=== PATIENT | female | born 1935 | race Caucasian/White ===

== ENCOUNTER 2018-01-01 10:13 | Emergency (ER) | payer MEDICARE ==
[~2018-01-01] VITALS: Ht 160 cm; Wt 61.2 kg
[2018-01-01 10:13] VITALS: BP_SYST 110
[~2018-01-01 10:13] MED LIST: CARV3.1246 PO; FLUO10CA65 PO; FURO20TA4 PO; HYDR-4100 PO; ISOS30TA6 PO; LIP20 PO; MOME13HF2 INH; OMEP20CA10 PO; PLA200 PO; POTA-118 PO; PRED5TAB PO; SPIRIVA INH; WARF2.5T2 PO
[2018-01-01] MEDS ORDERED: FLUT1DIS5 INH (10:43)
[2018-01-01] MEDS ORDERED: MECL12.584 PO (10:43)
[2018-01-01] MEDS ORDERED: ONDA4TAB22 PO (10:43)
[2018-01-01] MEDS ORDERED: DIPH-179 PO (10:43)
[2018-01-01] MEDS ORDERED: MEGE400O PO (10:43)
[2018-01-01] MEDS ORDERED: PRED20TA PO (10:43)
[2018-01-01] MEDS ORDERED: ERGO500043 PO (10:43)
[2018-01-01] MEDS ORDERED: DILT30TA36 PO (10:51)
[2018-01-01] MEDS ORDERED: DABI150C PO (10:51)
[2018-01-01 11:11] LABS: BASOPHILS # (AUTO) 0.2 K/uL (0.0-0.2); EOSINOPHILS % (AUTO) 0.1 % (0.0-4.0); LYMPHOCYTES # (AUTO) 1.2 K/uL (1.0-5.5)
[2018-01-01 11:19] LABS: HEMATOCRIT 33.9 % (36-48); HEMOGLOBIN 11.7 g/dL (12.0-16.0); MEAN CORPUSCULAR HEMOGLOBIN 33 pg (27-31); MEAN CORPUSCULAR HGB CONC 35 % (32-36); MEAN CORPUSCULAR VOLUME 96 fL (79.0-98.0); MONOCYTES # (AUTO) 1.4 K/uL (0.0-1.0); MONOCYTES % (AUTO) 8.3 % (1.7-9.3); NEUTROPHILS # (AUTO) 14.1 K/uL (1.8-7.7); NEUTROPHILS % (AUTO) 83.6 % (40.0-70.0); RED BLOOD CELL COUNT(AUTO) 3.52 MIL/uL (4.2-6.2); RED CELL DISTRIBUTION WIDTH 20.7 % (9.0-15.0); WHITE BLOOD COUNT (AUTO) 16.9 K/uL (4.8-10.8)
[2018-01-01 11:30] LABS: INR 1.3 (0.8-1.2); PROTHROMBIN TIME 12.9 SECS (9.5-12.5)
[2018-01-01 11:31] LABS: ANION GAP 11 (5-15); CALCIUM 8.1 mg/dL (8.4-11.0); CHLORIDE 103 mmol/L (98-107); CREATININE 0.85 mg/dL (0.55-1.30); GLUCOSE 91 mg/dL (70-99); POTASSIUM 3.1 mmol/L (3.5-5.1); SODIUM SERUM 139 mmol/L (136-145); UREA NITROGEN, BLOOD 14 mg/dL (8-21)
[2018-01-01 11:35] LABS: ALANINE AMINOTRANSFERASE 14 U/L (12-78); ALBUMIN 1.9 g/dL (3.4-4.8); ASPARTATE AMINOTRANSFERASE 14 U/L (10-37); TOTAL BILIRUBIN 0.5 mg/dL (0.0-1.0)
[2018-01-01 11:55] LABS: PLATELET COUNT (AUTO) 730 K/uL (130-430)
[2018-01-01 13:14] LABS: BILIRUBIN,URINE NEGATIVE (NEGATIVE); BLOOD, URINE 2+ (NEGATIVE); CLARITY/URINE CLOUDY (CLEAR); COLOR,URINE YELLOW (YELLOW); GLUCOSE,URINE NEGATIVE (NEGATIVE); KETONES,URINE NEGATIVE (NEGATIVE); LEUKOCYTE ESTERASE ,URINE 2+ (NEGATIVE); NITRITE, URINE NEGATIVE (NEGATIVE); PH,URINE 5.5 (5.0-8.0); PROTEIN URINE TRACE (NEGATIVE); UROBILINOGEN,URINE 0.2 (0.2-1.0)
[2018-01-01 13:49] LABS: RBC,URINE 20-50 /HPF (0-3)
[2018-01-01 13:50] LABS: BACTERIA,URINE MODERATE /HPF (None Seen); WBC,URINE 80-100 /HPF (0-3)
[2018-01-01 13:51] LABS: MUCUS,URINE None Seen /LPF (None Seen); YEAST,URINE Few /HPF (None Seen)
[2018-01-01] MEDS ORDERED: BACITRACIN 1 GM OINT TP ONE (13:51)
[2018-01-01] MEDS ORDERED: POTASSIUM CHLORIDE 20 MEQ/PKT PACKET PO ONE (15:30)
[2018-01-01] MEDS ORDERED: NACL 0.9% 1,000 ML IV ONE (15:30)
[2018-01-01 20:10] VITALS: BP_SYST 165
== END 2018-01-01 20:10 | disposition short-term general hospital (02) ==
LOC: SED 10:13
DX: A41.9 Sepsis, unspecified organism (principal); N39.0 Urinary tract infection, site not specified; J18.9 Pneumonia, unspecified organism; J44.9 Chronic obstructive pulmonary disease, unspecified; R40.4 Transient alteration of awareness; I10 Essential (primary) hypertension; E78.00 Pure hypercholesterolemia, unspecified; Z86.718 Personal history of other venous thrombosis and embolism; Z88.0 Allergy status to penicillin; Z88.5 Allergy status to narcotic agent; Z79.899 Other long term (current) drug therapy
CPT/HCPCS: 36415; 36556; 36600; 70450; 71045; 80053; 81000; 82803; 83605; 83880; 84484; 85025; 85610; 85730; 87040; 87086; 87186; 93005; 96365; 99291; C1751; J1956; J7030